=== PATIENT | female | born 1995 | race American Indian/Alaskan Native ===

== ENCOUNTER 2017-11-16 08:21 | Day surgery (SDC) | payer BC ==
[2017-11-16] MEDS: VIGAMOX OD SCH ×3 (08:55→09:05)
[2017-11-16] MEDS: TETRACAINE 0.5% OD SCH ×3 (08:55→09:05)
[2017-11-16] MEDS ORDERED: LACTATED RINGERS 1,000 ML IV SCH (09:15)
[2017-11-16] MEDS ORDERED: SUBLIMAZE IV PRN (09:17)
[2017-11-16] MEDS ORDERED: XYLOCAINE MPF 2% ONE ×3 (09:18→10:33)
[2017-11-16] MEDS ORDERED: DILAUDID ONE (09:19)
[2017-11-16] MEDS ORDERED: DIPRIVAN 10 MG/ML IV ONE (09:19)
--- NOTE | 2017-11-16 09:19 | Anesthesia Day of Surgery ---
Anesthesia Day of Surgery - Day of Surgery Patient Examined: Yes Patient H&P Reviewed: Yes Patient is NPO: Yes
--- NOTE | 2017-11-16 09:21 | Anesthesia Consultation ---
Anesthesia Consult and Med Hx Date of service: 11/16/17 - Airway Anesthetic Teeth Evaluation: Good ROM Head & Neck: Adequate Mental/Hyoid Distance: Adequate Mallampati Class: Class I Intubation Access Assessment: Probably Good - Pulmonary Exam CTA: Yes - Cardiac Exam Cardiac Exam: RRR - Pre-Operative Health Status ASA Pre-Surgery Classification: ASA3 Proposed Anesthetic Plan: General - Pulmonary Hx Smoking: No Hx Asthma: Yes (childhood; no inhaler use in several years) Hx Respiratory Symptoms: No Hx Sleep Apnea: No - Cardiovascular System Hx Hypertension: No Hx Heart Attack/AMI: No (>4 mets exercise tolerance; no orthopnea) Hx Cardia Arrhythmia: No Hx Valvular Heart Disease: No - Central Nervous System Hx Seizures: No CVA: No Hx Psychiatric Problems: No - Gastrointestinal Hx Gastroesophageal Reflux Disease: No - Endocrine Hx Renal Disease: No Hx Liver Disease: No Hx Insulin Dependent Diabetes: No Hx Non-Insulin Dependent Diabetes: No Hx Thyroid Disease: No - Other Systems Hx Alcohol Use: No Hx Substance Use: No Hx Obesity: Yes (stopped phentermine 1 week ago) - Additional Comments Anesthesia Medical History Comments: Hx PONV
[2017-11-16] MEDS ORDERED: ZOFRAN IV NR (10:00)
[2017-11-16] MEDS ORDERED: DECADRON IV NR (10:00)
[2017-11-16] MEDS ORDERED: SODIUM HYALURONATE IO ONE (10:00)
[2017-11-16] MEDS ORDERED: VERSED IV NR (10:00)
[2017-11-16] MEDS ORDERED: ZOFRAN ONE (10:05)
[2017-11-16] MEDS ORDERED: ANCEF ONE ×2 (10:13→11:14)
[2017-11-16] MEDS ORDERED: NACL P/F VIAL (10 ML) 10 ML ONE (10:14)
[2017-11-16] MEDS ORDERED: BSS ONE (10:14)
[2017-11-16] MEDS ORDERED: GARAMYCIN ONE (10:14)
[2017-11-16] MEDS ORDERED: BSS OD ONE (10:17)
[2017-11-16] MEDS ORDERED: TOBRADEX ONE (11:14)
[2017-11-16] MEDS ORDERED: DECADRON ONE (11:16)
[2017-11-16] MEDS ORDERED: ANCEF IV ONE (11:23)
[2017-11-16] MEDS ORDERED: GARAMYCIN IV ONE (11:24)
[2017-11-16] MEDS ORDERED: TOBRADEX OD ONE (11:29)
--- NOTE | 2017-11-16 12:02 | Operative Report ---
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 The anesthesiologist was utilized to regulate the intravenous sedation of the patient so the patient was cooperative yet not asleep in order for the patient to successfully maintain fixation of the eye on the operating light of the microscope. 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 Examination of the posterior portion of the eyes by indirect ophthalmoscopy shows the optic nerve and retina to be normal. 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 Donor tissue will be used to replace the dysfunctional cornea. PROGNOSIS: Excellent INDICATIONS FOR SURGERY: The patient is undergoing surgery with the hope of eliminating or improving these visual difficulties. OPERATIVE REPORT: The patient was taken into the preoperative area and evaluated medically and found from a systemic standpoint to be suitable for the planned surgery and anesthesia. The patient was then sedated and monitored by anesthesia. The patient was next taken into the operating room where they were positioned on the operating bed. They were given drops of topical anesthetic in the operative eye. Betadine was used to scrub the periorbital area, eyelids, adjacent cheek and forehead. The prepped area was dried with sterile gauze. The patient was draped, and a wire speculum was placed between the eyelids. The horizontal diameter of the cornea was measured with calipers to assist in determining the proper sizing of the trephination blade to be used for donor incision. PREPARATION OF DONOR TISSUE: Prior to surgery, the donor tissue was inspected and found to be adequate for the planned procedure. The involved eye bank provided the usual demographic information on the donor including age, cause of , necessary screening and blood work. The results were negative regarding possible transmission of diseases from the donor. Our inspection of the donor tissue showed no gross abnormalities. The cornea was inspected prior to surgery and found to be suitable and at the time of surgery was taken out of the storage solution and carefully centered on the cutting block with the centration based on the centration prachi that was made the eye bank on the external surface of the cornea-the stromal side. The donor tissue was removed from the tissue storage container by carefully removing it with forceps taking care not to touch the endothelial surface but only the scleral rim Suction was applied, the centration was rechecked to make sure it was perfectly centered. Once the size of the appropriate trephine was determined, the donor was punched with the trephine. The donor cornea was then covered with tissue storage solution and put aside for use later in the surgical procedure. Calipers were used to measure white to whitish was found to be 11.75 mm. A 8.5 mm trephine was used on the patient and an 8.75 mm was used on the donor cornea. Supersharp incision was made to my left followed by the injection of air into the anterior chamber. Formation of patient's cornea was undertaken with Dr. Madison trephiharley. A crescent blade was used to create a lamellar plane followed by injection of a using a 30-gauge needle. After was found to be going into the anterior chamber meaning that the Descemet's membrane was perforated. Right and left corneal scissors were used to remove the cornea. Followed by placement of donor cornea. 16 radial sutures were placed, knots were buried on the donor side. Wound was found to be watertight. [place] certain of Ancef and gentamicin was done subconjunctival. Pressure patch was applied after Tobrex ointment was placed on the cornea. OTHER SPECIFICS OF THE SURGICAL PROCEDURE: Trephine size: 8.5 mm pt 8.75 donor Horizontal corneal diameter: 11.75 mm MEDICATIONS APPLIED AT END OF SURGERY: TobraDex ointment, Ancef gentamicin injected DISCHARGE SUMMARY: The patient was released in stable condition. The patient and those with the patient were given a written sheet of postoperative instructions and counseling on any abnormal laboratory studies. The patient is to call immediately for difficulties and will otherwise see us in the morning at the office. TobraDex ointment. Radha Deleon M.D. Date cc: Dictated: Worksheets: Transcribed:
--- NOTE | 2017-11-16 12:04 | Short Stay Summary ---
Short Stay Documentation Date of service: 11/16/17 - History H&P: obtained from office - Allergies and Medications Current Medications: Allergies No Known Allergies Allergy (Verified 11/15/17 09:53) Home Medications Medication Instructions Recorded Confirmed Last Taken Type Phentermine HCl [Adipex-P] 37.5 mg PO QAM 11/15/17 11/16/17 1 Week Ago History ~11/09/17 Active Medications Dexamethasone (Decadron) 4 mg IV PREOP NR Stop: 11/16/17 16:00 Last Admin: 11/16/17 09:42 Dose: 4 mg Fentanyl (Sublimaze) 50 mcg IV Q15MIN PRN PRN Reason: Pain , Severe (7-10) Stop: 11/16/17 16:00 Lactated Ringer's (Lactated Ringers) 1,000 mls @ 75 mls/hr IV DIRECT CONNOR Last Admin: 11/16/17 09:15 Dose: 75 mls/hr Midazolam HCl (Versed) 2 mg IV PREOP NR Stop: 11/16/17 23:59 Last Admin: 11/16/17 09:38 Dose: 2 mg Moxifloxacin HCl (Vigamox) 1 drops OD Q5MIN CONNOR Stop: 11/16/17 13:00 Last Admin: 11/16/17 09:05 Dose: 1 drops Ondansetron HCl (Zofran) 4 mg IV PREOP NR Stop: 11/16/17 16:00 Last Admin: 11/16/17 09:40 Dose: 4 mg Tetracaine HCl (Tetracaine 0.5%) 1 drops OD Q5M CONNOR Stop: 11/16/17 13:00 Last Admin: 11/16/17 09:05 Dose: 1 drops - Brief post op/procedure progress note Date of procedure: 11/16/17 Pre-op diagnosis: keratoconus right eye Post-op diagnosis: same Procedure: Penetrating keratoplasty right eye Anesthesia: GETA Surgeon: FOREIGN FORD Estimated blood loss: minimal Specimen disposition: to lab (patient and donor corneas) Condition: stable - Disposition Condition at discharge: Good Disposition: DC-01 TO HOME OR SELFCARE - Discharge Diagnoses (1) Keratoconus of right eye Status: Resolved Short Stay Discharge Plan Follow up with: SUSAN RANKIN [Other] - 7 Days
[2017-11-16] MEDS ORDERED: TYLENOL #3 PO NR (12:46)
--- NOTE | 2017-11-16 13:38 | Post Anesthesia Evaluation ---
- Post Anesthesia Evaluation Patient Participated: Yes Airway Patent: Yes Stable Respiratory Function: Yes Nausea/Vomiting: No Temp > 96.8F: Yes Pain Manageable: Yes Adequeate Hydration: Yes Anesthesia Complications: No Block Receding Appropriately: Not Applicable
[2017-11-16 14:58] VITALS: BP 123/74
== END 2017-11-16 14:55 | disposition home or self-care (01) ==
LOC: OR 08:21
DX: H18.601 Keratoconus, unspecified, right eye (principal); J45.909 Unspecified asthma, uncomplicated; E66.01 Morbid (severe) obesity due to excess calories; Z68.41 Body mass index [BMI] 40.0-44.9, adult; Z98.890 Other specified postprocedural states; Z79.899 Other long term (current) drug therapy
CPT/HCPCS: 65730; 81025; 87075; 87116; 88304; J0690; J1100; J1170; J1580; J2250; J2405; J2704; J7120; V2785